=== PATIENT | female | born 1985 | race Two or more races ===

== ENCOUNTER 2024-07-08 12:49 | Emergency (ER) | payer MEDICAID, SELFPAY ==
[2024-07-08 12:50] VITALS: BMI 19.3
[2024-07-08 13:22] VITALS: BP 99/71; PULSE 97; RESP 20; TEMP 36.7; O2SAT 97
--- NOTE | 2024-07-08 16:05 | EDNOTE_ITS ---
<Statement entered by Janice Saenz MD - 07/10/24 15:27> As co-signing physician, I was present and available for consult prn. I concur with the plan and care as documented by the midlevel provider. ED Animal Bite RME/HPI General Chief Complaint: Animal Bite Stated Complaint: DOG BITES TO BILATERAL ARMS Time Seen by Provider: 07/08/24 13:14 Arrival date/time: 07/08/24 12:49 38-year-old female presents emergency department today complains of dog bite bilateral upper extremities. Unknown last tetanus Limitations: no limitations Related Data Previous Rx's ?Medication ?Instructions ?Recorded Vitamin * 1 tab PO QDAY #100 tabs 10/08/13 docusate sodium 100 mg capsule 100 mg PO BID #100 caps 10/08/13 (Colace) ibuprofen 400 mg tablet 800 mg (2 x 400 mg) PO TIDWM PRN 10/08/13 Patient rated pain 3 to 6 #60 tabs amoxicillin 875 mg-potassium 1 tab PO BID 10 days #20 tabs 07/08/24 clavulanate 125 mg tablet hydrocodone 5 mg-acetaminophen 325 1 tab PO BID PRN pain #10 tabs 07/08/24 mg tablet ibuprofen 600 mg tablet 600 mg PO Q6H #30 tabs 07/08/24 Allergies Allergy/AdvReac Type Severity Reaction Status Date / Time No Known Allergies Allergy Verified 07/08/24 12:52 Review of Systems Review of Systems Systems Reviewed: All systems reviewed, normal except as documented Constitutional Constitutional: Reports system reviewed and no additional complaints, except as documented, Denies fever(s) and Denies headache(s) Eyes Eyes: Reports system reviewed and no additional complaints, except as documented and Denies blurry vision ENT Ears, Nose, Mouth, and Throat: Reports system reviewed and no additional complaints, except as documented, Denies headache(s), Denies nasal congestion and Denies nasal discharge Cardiovascular Cardiovascular: Reports system reviewed and no additional complaints, except as documented, Denies chest pain and Denies dyspnea Respiratory Respiratory: Reports system reviewed and no additional complaints, except as documented, Denies chest congestion, Denies cough and Denies dyspnea Gastrointestinal Gastrointestinal: Reports system reviewed and no additional complaints, except as documented and Denies abdominal pain Integumentary/Breasts Skin/Breast: Reports system reviewed and no additional complaints, except as documented, Denies rash and Reports wounds (Dog bites bilateral per extremities) Neurologic Neurologic: Reports system reviewed and no additional complaints, except as documented, Reports as per HPI and Denies headache(s) Past Medical History Social History SMOKING STATUS: Never smoker ED Exam General Limitations: Present no limitations General appearance: Present alert and in no apparent distress Head Head exam: Present atraumatic Eye Eye exam: Present normal appearance, PERRL and EOMI ENT ENT exam: Present normal exam, normal oropharynx and mucous membranes moist Neck Neck exam: Present normal inspection, full ROM and trachea midline Chest Chest inspection: Present normal inspection and symmetric chest wall rise Respiratory Respiratory exam: Present normal lung sounds bilaterally Cardiovascular Cardiovascular exam: Present regular rate, normal rhythm and normal heart sounds Abdominal Exam Abdominal exam: Present soft and normal bowel sounds Extremities Exam Extremities exam: Present full ROM, tenderness, normal capillary refill and other (Bilateral upper extremities laceration); Absent joint swelling Back Exam Back exam: Present normal inspection and full ROM Neurological Exam Neurological exam: Present alert, oriented X3 and CN II-XII intact Psychiatric Psychiatric exam: Present normal affect and normal mood Skin Skin exam: Present warm, dry, intact and normal color Course Quality Measures none Orders Category Date Time Status Set Up Suture Tray STAT Care 07/08/24 16:05 Active Wound Care NOW Care 07/08/24 16:05 Active Amoxicillin/Pot Clav 875 [Augmentin 875] Med 07/08/24 16:05 Discontinued 1 tab PO X1 ONE HYDROcodone*/APAP 5/325 [[place] 5/325] Med 07/08/24 16:05 Discontinued 1 tab PO X1 ONE Ibuprofen Tab [Motrin Tab] Med 07/08/24 16:05 Discontinued 600 mg PO X1 ONE Lidocaine 1% 20 ml [Xylocaine 1% 20 ML] Med 07/08/24 16:05 Discontinued 20 ml INFL X1 ONE Tet,Diphth,Pertuss(Acell)-Tdap [Boostrix Vacc] Med 07/08/24 16:05 Discontinued 0.5 ml IMI .ONCE ONE Vital Signs Vital signs: Vital Signs Temperature 98.1 F 07/08/24 13:22 Pulse Rate 97 07/08/24 13:22 Respiratory Rate 20 07/08/24 13:22 Blood Pressure 99/71 07/08/24 13:22 Pulse Oximetry (%) 97 07/08/24 13:22 Oxygen Delivery Method Room Air 07/08/24 13:22 O2 saturation 97% room air WNL Procedures -ED Laceration Laceration 1: Site: upper extremity Side (If applicable): right Size (cm): 4 Description: linear Depth: simple, single layer Local Anesthetic: lidocaine 1% Amount of anesthesia used (mL): 4 Pre-repair: irrigated extensively Skin layer closed with: other ([place] x 9) Laceration 2: Site: upper extremity Side (If applicable): left Size (cm): 4 Description: irregular Depth: simple, single layer Local Anesthetic: lidocaine 1% Amount of anesthesia used (mL): 10 Pre-repair: irrigated extensively Skin layer closed with: nylon Size (cm): 4-0 Number of sutures: 8 Technique: simple, interrupted Laceration 3: Site: upper extremity Side (If applicable): right Size (cm): 7 Description: irregular Depth: simple, single layer Local Anesthetic: lidocaine 1% Amount of anesthesia used (mL): 8 Pre-repair: wound explored and irrigated extensively Skin layer closed with: nylon and other (11 elma 8 sutures) Animal Bite MDM Narrative MDM Narrative:: 38-year-old female presents emergency department today complains of dog bite bilateral upper extremities. Unknown last tetanus Patient has lacerations, dog bites bilateral upper extremities Laceration repaired wounds irrigated copiously tetanus updated patient given [place] for pain and first dose of antibiotics Patient has 3 separate lacerations no evidence of tendon or ligamentous injury no evidence of infection Patient instructed to have elma and sutures removed in 10 to 14 days Patient discharged home in no distress to follow-up with primary care doctor in the next 24 to 48 hours and for any worsening symptoms to return to the ER immediately Patient data External records reviewed:: [facility] previous records Clinical information provided by:: patient Social determinants that could affect healthcare access:: alcohol use Patient has the following chronic illnesses:: Alcohol use How is presenting disease/condition affected by chronic disease/condition?: no chronic disease Evaluation data The following diagnostics were reviewed and interpreted by me:: other (specify) (N/A) Lab and/or radiology exams considered but not ordered:: consider not indicated Interpretation Summary: N/A Medications / Prescriptions Medications or Prescriptions considered but not ordered:: Given Medication administrations:: Medication Administration History Discontinued Medications Hydrocodone Bitart/Acetaminophen (Hydrocodone/[place] 5/325 Tablet) 1 tab PO X1 ONE Stop: 07/08/24 16:06 Last Admin: 07/08/24 16:30 Dose: 1 tab Documented By: Amoxicillin/Clavulanate Potassium (Amoxicillin/Pot Clav 875 Tablet) 1 tab PO X1 ONE Stop: 07/08/24 16:06 Last Admin: 07/08/24 16:29 Dose: 1 tab Documented By: Diphtheria/Tetanus/Acell Pertussis (Diphth,Pertuss(Acell),Tet Vac 0.5 Ml Vial) 0.5 ml IMi .ONCE ONE Stop: 07/08/24 16:06 Last Admin: 07/08/24 16:30 Dose: 0.5 ml Documented By: Ibuprofen (Ibuprofen Tab 600 Mg Tablet) 600 mg PO X1 ONE Stop: 07/08/24 16:06 Last Admin: 07/08/24 16:29 Dose: 600 mg Documented By: Lidocaine HCl (Lidocaine Hcl 1% 20 Ml Vial) 20 ml INFL X1 ONE Stop: 07/08/24 16:06 Last Admin: 07/08/24 16:29 Dose: 20 ml Documented By: Given Consultations Consultation(s) initiated? (list below): No Diagnosis Differential diagnosis animal bite: bite by animal and other (Laceration) Most likely diagnosis given after review of the tests above:: Laceration Admission Indicated Admission indicated?: not indicated Admission Request Was there a request for admission?: No Disposition Plan Disposition Plan: Discharge Discharge Attestation Discharge Attestation: The patient and all family members were given an opportunity to ask questions and understood the discharge instructions. Discharge instructions specifically effects, indications for sooner follow up or return to the emergency department, and the expected course of current diagnosis. Patient condition: Stable Discharge Plan Plan Patient Disposition: HOME (Self Care) Disposition Comment: Stable Prescriptions/Referrals Prescriptions/Med Rec: New hydrocodone-acetaminophen 5-325 mg tablet 1 tab PO BID MDD 10 PRN (Reason: pain) Qty: 10 0RF ibuprofen 600 mg tablet 600 mg PO Q6H Qty: 30 0RF amoxicillin-pot clavulanate 875-125 mg tablet 1 tab PO BID 10 Days Qty: 20 0RF No Action ibuprofen 400 MG tablet 800 mg PO TIDWM PRN (Reason: Patient rated pain 3 to 6) Qty: 60 0RF docusate sodium [Colace] 100 MG capsule 100 mg PO BID Qty: 100 0RF Vitamin * 1 EACH tablet 1 tab PO QDAY Qty: 100 0RF Problem List Clinical Impression: Dog bite, Laceration of multiple sites Patient/Caregiver Discharge Instructions Additional Instructions: Please follow up with your primary care doctor in the next 24-48hrs for any worsening symptoms return here immediately Please have elma and sutures removed in 10 to 14 days Print Language: Portuguese Stand Alone Forms: Yvonne Award Info., Patient Portal Info Letter Vaccines Vaccines Given During Stay: TDaP PA/[employer] Supervising Physician PA/[employer] Supervising Physician: Dr. SAENZ
[2024-07-08] MEDS: LIDOCAINE HCL 1% 20 ML VIAL INFL (16:29)
[2024-07-08] MEDS: IBUPROFEN TAB 600 MG TABLET PO (16:29)
[2024-07-08] MEDS: AMOXICILLIN/POT CLAV 875 TABLET 1 TAB PO (16:29)
[2024-07-08] MEDS: DIPHTH,PERTUSS(ACELL),TET VAC 0.5 ML VIAL IMi (16:30)
[2024-07-08] MEDS: HYDROcodone/APAP 5/325 TABLET 1 TAB PO (16:30)
== END 2024-07-08 16:38 | disposition home or self-care (01) ==
LOC: SERX 16:43
PROVIDERS: Emergency Provider Emergency Medicine
DX: S41.111A Laceration without foreign body of right upper arm, initial encounter (principal); W54.0XXA Bitten by dog, initial encounter; Z23 Encounter for immunization
CPT/HCPCS: 12005; 90471; 90715; 99283; J3490; A9270